=== PATIENT | female | born 1990 | race Caucasian/White ===

== ENCOUNTER 2017-09-10 17:05 | Emergency (ER) | payer OTHER ==
[~2017-09-10] VITALS: Ht 170.2 cm; Wt 54.4 kg
[~2017-09-10 17:05] MED LIST: ACETAMINOPHEN-1 EAC1 PO; ACETAMINOPHEN-120 ML PO; AFRIN15 ML NS; AMOXICILLIN875 MG PO; AUGMENTIN 500-1 EACH PO; AZITHROMYCIN 2250 MG PO; B COMPLEX1 EAC1 PO; BACKACHE EXTRA580 MG; BACTRIM DS TAB1 EACH PO; CIPRO250 M1 PO; CLONAZEPAM 0.50.5 M1; DARVOCET-N 1001 EACH PO; DIFLUCAN150 M1 PO; DOXYCYCLINE 10100 MG PO; ENDOCET 5-3251 EACH PO; FIORICET 50-301 EACH PO; FLAGYL500 MG PO; FLEXERIL PO; FLONASE 0.05%50 MCG NASAL; HYCET 7.5 MG-3473 ML PO; HYDROCODON-ACE1 EAC7 PO; HYDROCODONE-AP1 EAC6 PO; IBUPROFEN 600600 M1 PO; IMITREX 25 MG T25 MG PO; IMITREX6 MG/0.5 M SQ; KEFLEX500 MG PO; MAXALT5 MG PO; NAPROSYN500 MG PO; NOHOMEMEDICATIONS; NORCO 5-325 TA1 EACH PO; ONDANSETRON HCL4 M2 PO; PERCOCET 5-3251 EACH PO; PHENERGAN 25 MG25 M1 PO; PHENERGAN 25 MG25 MG PO; PREDNISONE 20 M20 M1 PO; PROAIR HFA8.5 GM IH; PROAIR HFA8.5 GM INH; PROVERA10 MG PO; PROZAC10 MG PO; PYRIDIUM200 MG PO; ROBITUSSIN DM118 ML PO; SAFYRAL TABLET1 EACH PO; SKELAXIN 800 M800 M1 PO; TESSALON PERLE100 MG PO; TOPAMAX25 M1 PO; TUCKS1 EAC1 TP; ULTRAM 50MG TAB50 MG PO; VALIUM5 MG; VENTOLIN HFA 1818 GM INH; VICODIN 5-5001 EACH PO; ZOFRAN ODT4 MG SUBLING; ZOFRAN4 MG PO; birth control
[2017-09-10] MEDS ORDERED: ADDERALL 20 MG20 M1 PO (17:15)
[2017-09-10] MEDS ORDERED: XANAX 0.5 MG0.5 MG PO (17:37)
[2017-09-10 17:51] LABS: URINE BILIRUBIN NEGATIVE (Negative); URINE BLOOD NEGATIVE (Negative); URINE CLARITY CLEAR; URINE COLOR YELLOW; URINE GLUCOSE-RANDOM NEGATIVE (Negative); URINE KETONES NEGATIVE (Negative); URINE LEUKOCYTES-REFLEX NEGATIVE (Negative); URINE NITRITE-REFLEX NEGATIVE (Negative); URINE PROTEIN NEGATIVE (Negative); URINE SPECIFIC GRAVITY 1.025 (1.005-1.030); URINE UROBILINOGEN 0.2 E.U./dl (0.2-1.0)
[2017-09-10 17:52] LABS: ABSOLUTE BASOPHILS 0.1 thou/uL (0.0-0.2); ABSOLUTE EOSINOPHILS 0.2 thou/uL (0.0-0.7); ABSOLUTE LYMPHOCYTES 2.2 thou/uL (0.8-5.3); ABSOLUTE MONOCYTES 0.8 thou/uL (0.0-1.2); ABSOLUTE NEUTROPHILS 4.8 thou/uL (1.6-8.1); BASOPHILS 1.1 %; EOSINOPHILS 2.7 %; HEMATOCRIT 42.4 % (37.0-47.0); HEMOGLOBIN 13.6 gm/dL (12.0-15.0); LYMPHOCYTES 26.9 %; MCH 26.6 pg (26.0-34.0); MCHC 32.2 g/dL (28.0-37.0); MCV 82.8 fL (80.0-100.0); MONOCYTES 10.2 %; MPV 8.2 fl. (7.2-11.1); NUCLEATED RBCS 0 /100WBC; PLATELET COUNT* 292 thou/uL (150-400); POLYS 59.1 %; RBC 5.11 mil/uL (4.20-5.00); RDW-CV 17.3 % (10.5-14.5)
[2017-09-10 18:01] LABS: CALCIUM 8.9 mg/dL (8.5-10.1); CREATININE 0.8 mg/dL (0.6-1.3); POTASSIUM 3.7 mmol/L (3.5-5.1)
[2017-09-10 18:05] LABS: TOTAL BILIRUBIN 0.3 mg/dL (<0.1-1.0); TOTAL PROTEIN 7.5 g/dL (6.4-8.2)
[2017-09-10 18:05] LABS: INFLUENZA A ANTIGEN None Detected (None Detect); INFLUENZA B ANTIGEN None Detected (None Detect)
[2017-09-10 20:47] VITALS: BP 114/48
--- NOTE | 2017-09-14 17:32 | EKG ---
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1990 Requested By: Gab Jose Order Number: [id number] MD: Melo Cooper Measurements Intervals [place] Rate: 131 P: 71 [place]: 127 QRS: 94 QRSD: 85 T: 21 QT: 285 QTc: 421 Interpretive Statements Sinus tachycardia Left atrial enlargement Compared to ECG 11/05/2015 17:21:35 Atrial abnormality now present Sinus rhythm no longer present Electronically Signed On 09-14-2017 17:32:01 [employer] by Melo Cooper [email or web address] <ELECTRONICALLY SIGNED> By: Melo Cooper MD, [facility] 09/14/17 1732 18 18 Melo Cooper MD, FACC /EPI
== END 2017-09-10 20:49 | disposition home or self-care (01) ==
LOC: M.ERS 17:05
PROVIDERS: Nurse Practitioner Family
DX: J11.1 Influenza due to unidentified influenza virus with other respiratory manifestations (principal); J45.909 Unspecified asthma, uncomplicated; F41.9 Anxiety disorder, unspecified; G43.909 Migraine, unspecified, not intractable, without status migrainosus; F17.210 Nicotine dependence, cigarettes, uncomplicated; F10.99 Alcohol use, unspecified with unspecified alcohol-induced disorder; Z90.710 Acquired absence of both cervix and uterus; Z98.890 Other specified postprocedural states; Z88.1 Allergy status to other antibiotic agents; Z88.6 Allergy status to analgesic agent; Z88.8 Allergy status to other drugs, medicaments and biological substances

== ENCOUNTER 2017-11-23 19:10 | Emergency (ER) | payer OTHER ==
[~2017-11-23] VITALS: Ht 170.2 cm; Wt 59.0 kg
[~2017-11-23 19:10] MED LIST changes: +ADDERALL 20 MG20 M1 PO; +XANAX 0.5 MG0.5 MG PO
[2017-11-23 19:41] LABS: URINE BILIRUBIN NEGATIVE (Negative); URINE BLOOD NEGATIVE (Negative); URINE CLARITY CLEAR; URINE COLOR YELLOW; URINE GLUCOSE-RANDOM NEGATIVE (Negative); URINE KETONES NEGATIVE (Negative); URINE LEUKOCYTES-REFLEX NEGATIVE (Negative); URINE NITRITE-REFLEX NEGATIVE (Negative); URINE PROTEIN NEGATIVE (Negative); URINE SPECIFIC GRAVITY >= 1.030 (1.005-1.030); URINE UROBILINOGEN 0.2 E.U./dl (0.2-1.0)
[2017-11-23 20:13] LABS: ABSOLUTE BASOPHILS 0.1 thou/uL (0.0-0.2); ABSOLUTE EOSINOPHILS 0.2 thou/uL (0.0-0.7); ABSOLUTE LYMPHOCYTES 2.4 thou/uL (0.8-5.3); ABSOLUTE NEUTROPHILS 6.9 thou/uL (1.6-8.1); BASOPHILS 0.9 %; EOSINOPHILS 2.3 %; HEMATOCRIT 37.2 % (37.0-47.0); HEMOGLOBIN 12.1 gm/dL (12.0-15.0); LYMPHOCYTES 22.8 %; MCH 27.6 pg (26.0-34.0); MCHC 32.6 g/dL (28.0-37.0); MCV 84.7 fL (80.0-100.0); MONOCYTES 9.2 %; MPV 7.9 fl. (7.2-11.1); NUCLEATED RBCS 0 /100WBC; PLATELET COUNT* 266 thou/uL (150-400); POLYS 64.8 %; RBC 4.39 mil/uL (4.20-5.00); RDW-CV 16.3 % (10.5-14.5); WBC 10.6 thou/uL (4.0-11.0)
[2017-11-23 20:20] LABS: CREATININE 0.8 mg/dL (0.6-1.3); POTASSIUM 3.7 mmol/L (3.5-5.1)
[2017-11-23 20:25] LABS: ALBUMIN 3.5 g/dL (3.4-5.0); TOTAL BILIRUBIN 0.2 mg/dL (<0.1-1.0); TOTAL PROTEIN 6.6 g/dL (6.4-8.2)
[2017-11-23 20:55] VITALS: BP 124/78
== END 2017-11-23 20:56 | disposition home or self-care (01) ==
LOC: M.ERS 19:10
PROVIDERS: Family Medicine
DX: O20.0 Threatened abortion (principal); E28.2 Polycystic ovarian syndrome; F41.9 Anxiety disorder, unspecified; J45.909 Unspecified asthma, uncomplicated; G43.909 Migraine, unspecified, not intractable, without status migrainosus; F17.210 Nicotine dependence, cigarettes, uncomplicated; Z90.710 Acquired absence of both cervix and uterus; Z3A.01 Less than 8 weeks gestation of pregnancy; Z88.8 Allergy status to other drugs, medicaments and biological substances; Z88.6 Allergy status to analgesic agent

== ENCOUNTER 2017-12-08 19:39 | Emergency (ER) | payer OTHER ==
[~2017-12-08] VITALS: Ht 170.2 cm; Wt 59.0 kg
[2017-12-08] MEDS ORDERED: VISTARIL 25 MG25 M1 (19:57)
[2017-12-08 20:24] LABS: URINE BILIRUBIN NEGATIVE (Negative); URINE BLOOD NEGATIVE (Negative); URINE CLARITY CLEAR; URINE COLOR YELLOW; URINE GLUCOSE-RANDOM NEGATIVE (Negative); URINE KETONES NEGATIVE (Negative); URINE LEUKOCYTES-REFLEX NEGATIVE (Negative); URINE NITRITE-REFLEX NEGATIVE (Negative); URINE PROTEIN NEGATIVE (Negative); URINE SPECIFIC GRAVITY 1.015 (1.005-1.030); URINE UROBILINOGEN 0.2 E.U./dl (0.2-1.0)
[2017-12-08 21:10] VITALS: BP 99/43
== END 2017-12-08 21:10 | disposition home or self-care (01) ==
LOC: M.ERS 19:39
PROVIDERS: Nurse Practitioner Family
DX: O99.511 Diseases of the respiratory system complicating pregnancy, first trimester (principal); J30.9 Allergic rhinitis, unspecified; R51 Headache; E28.2 Polycystic ovarian syndrome; F41.9 Anxiety disorder, unspecified; F17.210 Nicotine dependence, cigarettes, uncomplicated; Z88.8 Allergy status to other drugs, medicaments and biological substances; Z88.6 Allergy status to analgesic agent; Z3A.01 Less than 8 weeks gestation of pregnancy

== ENCOUNTER 2018-01-24 09:35 | Emergency (ER) | payer OTHER ==
[~2018-01-24] VITALS: Ht 170.2 cm; Wt 59.0 kg
[~2018-01-24 09:35] MED LIST changes: +VISTARIL 25 MG25 M1
[2018-01-24] MEDS ORDERED: LEXAPRO 10 MG T10 M2 PO (09:44)
[2018-01-24] MEDS ORDERED: PRENATAL PO (09:45)
[2018-01-24 15:20] VITALS: BP 127/70
[2018-01-25] MEDS ORDERED: BUTALB-APAP-CA1 EACH (21:15)
== END 2018-01-24 15:20 | disposition home or self-care (01) ==
LOC: M.ERS 09:35
DX: O26.891 Other specified pregnancy related conditions, first trimester (principal); G43.909 Migraine, unspecified, not intractable, without status migrainosus; E28.2 Polycystic ovarian syndrome; F41.9 Anxiety disorder, unspecified; J45.909 Unspecified asthma, uncomplicated; F17.210 Nicotine dependence, cigarettes, uncomplicated; Z88.8 Allergy status to other drugs, medicaments and biological substances; Z3A.12 12 weeks gestation of pregnancy; Z88.6 Allergy status to analgesic agent

== ENCOUNTER 2018-01-25 20:52 | Emergency (ER) | payer OTHER ==
[~2018-01-25] VITALS: Ht 170.2 cm; Wt 59.0 kg
[~2018-01-25 20:52] MED LIST changes: +LEXAPRO 10 MG T10 M2 PO; +PRENATAL PO
[2018-01-25] MEDS ORDERED: BUTALB-APAP-CA1 EACH (21:15)
[2018-01-25 21:45] LABS: ABSOLUTE EOSINOPHILS 0.2 thou/uL (0.0-0.7); ABSOLUTE LYMPHOCYTES 1.5 thou/uL (0.8-5.3); ABSOLUTE MONOCYTES 0.8 thou/uL (0.0-1.2); ABSOLUTE NEUTROPHILS 5.9 thou/uL (1.6-8.1); BASOPHILS 0.5 %; EOSINOPHILS 2.6 %; HEMOGLOBIN 10.6 gm/dL (12.0-15.0); LYMPHOCYTES 17.9 %; MCH 29.2 pg (26.0-34.0); MCHC 33.1 g/dL (28.0-37.0); MCV 88.1 fL (80.0-100.0); MONOCYTES 9.5 %; MPV 8.3 fl. (7.2-11.1); NUCLEATED RBCS 0 /100WBC; PLATELET COUNT* 208 thou/uL (150-400); POLYS 69.5 %; RBC 3.63 mil/uL (4.20-5.00); RDW-CV 16.5 % (10.5-14.5); WBC 8.5 thou/uL (4.0-11.0)
[2018-01-25 21:53] LABS: CALCIUM 9.2 mg/dL (8.5-10.1); CREATININE 0.6 mg/dL (0.6-1.3); POTASSIUM 3.6 mmol/L (3.5-5.1)
[2018-01-26 00:16] VITALS: BP 112/56
== END 2018-01-26 00:17 | disposition home or self-care (01) ==
LOC: M.ERS 20:52
PROVIDERS: Emergency Medicine
DX: O99.611 Diseases of the digestive system complicating pregnancy, first trimester (principal); K62.5 Hemorrhage of anus and rectum; E28.2 Polycystic ovarian syndrome; F41.9 Anxiety disorder, unspecified; J45.909 Unspecified asthma, uncomplicated; G43.909 Migraine, unspecified, not intractable, without status migrainosus; F17.210 Nicotine dependence, cigarettes, uncomplicated; Z3A.12 12 weeks gestation of pregnancy; Z88.8 Allergy status to other drugs, medicaments and biological substances; Z88.6 Allergy status to analgesic agent

== ENCOUNTER 2018-05-19 13:50 | Emergency (ER) | payer OTHER ==
[~2018-05-19] VITALS: Ht 170.2 cm; Wt 64.4 kg
[~2018-05-19 13:50] MED LIST changes: +BUTALB-APAP-CA1 EACH
[2018-05-19] MEDS ORDERED: BUSPIRONE HCL10 MG PO (14:03)
[2018-05-19] MEDS ORDERED: SERTRALINE HCL50 MG PO (14:04)
[2018-05-19] MEDS ORDERED: ZPAK PO (14:31)
[2018-05-19] MEDS ORDERED: TESSALON PERLE100 MG PO (14:31)
[2018-05-19 14:47] VITALS: BP 107/60
== END 2018-05-19 14:47 | disposition home or self-care (01) ==
LOC: M.ERS 13:50
DX: J40 Bronchitis, not specified as acute or chronic (principal); G43.909 Migraine, unspecified, not intractable, without status migrainosus; F41.9 Anxiety disorder, unspecified; F17.210 Nicotine dependence, cigarettes, uncomplicated; Z88.6 Allergy status to analgesic agent; Z88.8 Allergy status to other drugs, medicaments and biological substances

== ENCOUNTER 2018-08-23 10:11 | Emergency (ER) | payer OTHER, MEDICAID ==
[~2018-08-23] VITALS: Ht 170.2 cm; Wt 63.5 kg
[~2018-08-23 10:11] MED LIST changes: +BUSPIRONE HCL10 MG PO; +SERTRALINE HCL50 MG PO; +ZPAK PO
[2018-08-23] MEDS ORDERED: BUTALB-APAP-CA1 EACH PO (10:25)
[2018-08-23] MEDS ORDERED: BOTOX100 UNIT IM (10:26)
[2018-08-23] MEDS ORDERED: MAXALT MLT ODT10 M1 PO (10:27)
[2018-08-23] MEDS ORDERED: RITALIN20 MG PO (10:27)
[2018-08-23 10:36] LABS: URINE BILIRUBIN NEGATIVE (Negative); URINE BLOOD 2+ (Negative); URINE CLARITY CLEAR; URINE COLOR YELLOW; URINE GLUCOSE-RANDOM NEGATIVE (Negative); URINE KETONES NEGATIVE (Negative); URINE LEUKOCYTES-REFLEX NEGATIVE (Negative); URINE NITRITE-REFLEX NEGATIVE (Negative); URINE PROTEIN NEGATIVE (Negative); URINE UROBILINOGEN 0.2 E.U./dl (0.2-1.0)
[2018-08-23 10:46] LABS: BACTERIA-REFLEX 1-9 Few /HPF (None Seen); CASTS None Seen /LPF (None Seen); CRYSTALS None Seen /LPF (None Seen); MUCUS 0-3 Light strn/LPF (None Seen); SQUAMOUS 0-3 Few /LPF (0-3); URINE RBC None Seen /HPF (0-2); URINE WBC-REFLEX None Seen /HPF (0-5)
[2018-08-23 10:49] LABS: ABSOLUTE BASOPHILS 0.1 thou/uL (0.0-0.2); ABSOLUTE EOSINOPHILS 0.4 thou/uL (0.0-0.7); ABSOLUTE LYMPHOCYTES 2.3 thou/uL (0.8-5.3); ABSOLUTE MONOCYTES 0.7 thou/uL (0.0-1.2); ABSOLUTE NEUTROPHILS 2.9 thou/uL (1.6-8.1); BASOPHILS 0.9 %; EOSINOPHILS 5.7 %; HEMATOCRIT 38.7 % (37.0-47.0); HEMOGLOBIN 12.8 gm/dL (12.0-15.0); LYMPHOCYTES 36.3 %; MCHC 33.1 g/dL (28.0-37.0); MCV 93.5 fL (80.0-100.0); MONOCYTES 11.1 %; MPV 8.4 fl. (7.2-11.1); NUCLEATED RBCS 0 /100WBC; PLATELET COUNT* 249 thou/uL (150-400); RBC 4.14 mil/uL (4.20-5.00); RDW-CV 14.7 % (10.5-14.5); WBC 6.4 thou/uL (4.0-11.0)
[2018-08-23 10:55] LABS: CALCIUM 8.7 mg/dL (8.5-10.1); CREATININE 0.8 mg/dL (0.6-1.3); POTASSIUM 4.2 mmol/L (3.5-5.1)
[2018-08-23 11:00] LABS: ALBUMIN 3.6 g/dL (3.4-5.0); TOTAL BILIRUBIN 0.2 mg/dL (<0.1-1.0); TOTAL PROTEIN 6.5 g/dL (6.4-8.2)
[2018-08-23] MEDS ORDERED: HYDROCODONE-AP1 EAC6 PO (12:36)
[2018-08-23 12:45] VITALS: BP 102/60
== END 2018-08-23 12:48 | disposition home or self-care (01) ==
LOC: M.ERS 10:11
PROVIDERS: Nurse Practitioner Family
DX: N80.9 Endometriosis, unspecified (principal); F41.9 Anxiety disorder, unspecified; J45.909 Unspecified asthma, uncomplicated; G43.909 Migraine, unspecified, not intractable, without status migrainosus; F32.9 Major depressive disorder, single episode, unspecified; F17.210 Nicotine dependence, cigarettes, uncomplicated; Z88.8 Allergy status to other drugs, medicaments and biological substances; Z88.6 Allergy status to analgesic agent

== ENCOUNTER 2019-03-26 18:42 | Emergency (ER) | payer OTHER ==
[~2019-03-26] VITALS: Ht 170.2 cm; Wt 59.0 kg
[~2019-03-26 18:42] MED LIST changes: +BOTOX100 UNIT IM; +BUTALB-APAP-CA1 EACH PO; +MAXALT MLT ODT10 M1 PO; +RITALIN20 MG PO
[2019-03-26] MEDS ORDERED: CARBAMAZEPINE200 M5 PO (18:58)
[2019-03-26] MEDS ORDERED: ACETAMINOPHEN-1 EAC1 PO (20:48)
[2019-03-26 21:15] VITALS: BP 110/69
== END 2019-03-26 21:17 | disposition home or self-care (01) ==
LOC: M.ERS 18:42
DX: M25.562 Pain in left knee (principal); N80.9 Endometriosis, unspecified; F41.9 Anxiety disorder, unspecified; J45.909 Unspecified asthma, uncomplicated; G43.909 Migraine, unspecified, not intractable, without status migrainosus; F32.9 Major depressive disorder, single episode, unspecified; F17.210 Nicotine dependence, cigarettes, uncomplicated; Z90.710 Acquired absence of both cervix and uterus; Z88.8 Allergy status to other drugs, medicaments and biological substances

== ENCOUNTER 2019-06-20 09:31 | Emergency (ER) | payer OTHER ==
[~2019-06-20] VITALS: Ht 170.2 cm; Wt 61.2 kg
[~2019-06-20 09:31] MED LIST changes: +CARBAMAZEPINE200 M5 PO
[2019-06-20] MEDS ORDERED: VALIUM5 MG PO (09:46)
[2019-06-20 09:58] LABS: URINE BILIRUBIN NEGATIVE (Negative); URINE BLOOD 2+ (Negative); URINE CLARITY CLEAR; URINE COLOR YELLOW; URINE GLUCOSE-RANDOM NEGATIVE (Negative); URINE KETONES 1+ (Negative); URINE LEUKOCYTES-REFLEX NEGATIVE (Negative); URINE NITRITE-REFLEX NEGATIVE (Negative); URINE PROTEIN NEGATIVE (Negative); URINE SPECIFIC GRAVITY 1.015 (1.005-1.030); URINE UROBILINOGEN 0.2 E.U./dl (0.2-1.0)
[2019-06-20 10:12] LABS: ABSOLUTE BASOPHILS 0.1 thou/uL (0.0-0.2); ABSOLUTE EOSINOPHILS 0.1 thou/uL (0.0-0.7); ABSOLUTE LYMPHOCYTES 1.3 thou/uL (0.8-5.3); ABSOLUTE MONOCYTES 0.6 thou/uL (0.0-1.2); ABSOLUTE NEUTROPHILS 3.5 thou/uL (1.6-8.1); BASOPHILS 0.9 %; EOSINOPHILS 2.4 %; HEMATOCRIT 36.2 % (37.0-47.0); HEMOGLOBIN 11.9 gm/dL (12.0-15.0); LYMPHOCYTES 22.5 %; MCH 29.1 pg (26.0-34.0); MCHC 32.9 g/dL (28.0-37.0); MCV 88.4 fL (80.0-100.0); MONOCYTES 11.5 %; MPV 8.9 fl. (7.2-11.1); NUCLEATED RBCS 0 /100WBC; PLATELET COUNT* 245 thou/uL (150-400); POLYS 62.7 %; RBC 4.09 mil/uL (4.20-5.00); RDW-CV 14.9 % (10.5-14.5); WBC 5.6 thou/uL (4.0-11.0)
[2019-06-20 10:16] LABS: BACTERIA-REFLEX 1-9 Few /HPF (None Seen); CASTS None Seen /LPF (None Seen); CRYSTALS None Seen /LPF (None Seen); MUCUS None Seen strn/LPF (None Seen); SQUAMOUS 0-3 Few /LPF (0-3); URINE RBC 3-10 Few /HPF (0-2); URINE WBC-REFLEX 0-5 Rare /HPF (0-5)
[2019-06-20 10:28] LABS: CALCIUM 9.2 mg/dL (8.5-10.1); CREATININE 0.9 mg/dL (0.6-1.3)
[2019-06-20 10:33] LABS: TOTAL BILIRUBIN 0.2 mg/dL (<0.1-1.0); TOTAL PROTEIN 6.9 g/dL (6.4-8.2)
[2019-06-20 11:59] VITALS: BP 101/59
== END 2019-06-20 12:00 | disposition home or self-care (01) ==
LOC: M.ERS 09:31
PROVIDERS: Family Medicine
DX: R10.32 Left lower quadrant pain (principal); R11.2 Nausea with vomiting, unspecified; F41.9 Anxiety disorder, unspecified; G43.909 Migraine, unspecified, not intractable, without status migrainosus; F32.9 Major depressive disorder, single episode, unspecified; F17.210 Nicotine dependence, cigarettes, uncomplicated; Z88.6 Allergy status to analgesic agent; Z88.8 Allergy status to other drugs, medicaments and biological substances; N80.9 Endometriosis, unspecified

== ENCOUNTER 2019-07-31 19:06 | Inpatient (IN) | payer OTHER ==
[~2019-07-31] VITALS: Ht 170.2 cm; Wt 60.5 kg
[~2019-07-31 19:06] MED LIST changes: +VALIUM5 MG PO
[2019-07-31 19:09] VITALS: BP 138/81
[2019-07-31] MEDS ORDERED: BIRTH CONTROL (19:14)
[2019-07-31 20:08] LABS: URINE BILIRUBIN NEGATIVE (Negative); URINE BLOOD NEGATIVE (Negative); URINE CLARITY CLEAR; URINE COLOR YELLOW; URINE GLUCOSE-RANDOM NEGATIVE (Negative); URINE KETONES NEGATIVE (Negative); URINE LEUKOCYTES-REFLEX NEGATIVE (Negative); URINE NITRITE-REFLEX NEGATIVE (Negative); URINE PROTEIN NEGATIVE (Negative); URINE SPECIFIC GRAVITY 1.015 (1.005-1.030); URINE UROBILINOGEN 0.2 E.U./dl (0.2-1.0)
[2019-07-31 20:18] LABS: AMP/METHAMP Negative (Negative); BARBITURATES POSITIVE (Negative); BENZODIAZEPINES POSITIVE (Negative); COCAINE Negative (Negative); METHADONE Negative (Negative); OPIATES Negative (Negative); PCP Negative (Negative); THC Negative (Negative)
[2019-07-31 20:18] LABS: ABSOLUTE BASOPHILS 0.1 thou/uL (0.0-0.2); ABSOLUTE EOSINOPHILS 0.2 thou/uL (0.0-0.7); ABSOLUTE LYMPHOCYTES 1.9 thou/uL (0.8-5.3); ABSOLUTE MONOCYTES 0.7 thou/uL (0.0-1.2); ABSOLUTE NEUTROPHILS 3.2 thou/uL (1.6-8.1); BASOPHILS 0.9 %; EOSINOPHILS 3.6 %; HEMATOCRIT 35.6 % (37.0-47.0); HEMOGLOBIN 11.7 gm/dL (12.0-15.0); LYMPHOCYTES 30.8 %; MCH 28.6 pg (26.0-34.0); MCHC 32.7 g/dL (28.0-37.0); MCV 87.6 fL (80.0-100.0); MONOCYTES 11.9 %; NUCLEATED RBCS 0 /100WBC; PLATELET COUNT* 296 thou/uL (150-400); POLYS 52.8 %; RBC 4.07 mil/uL (4.20-5.00); RDW-CV 15.2 % (10.5-14.5); WBC 6.1 thou/uL (4.0-11.0)
[2019-07-31 20:22] LABS: ANION GAP 7 mmol/L (7-16); BUN 12 mg/dL (7-18); CALCIUM 8.8 mg/dL (8.5-10.1); CHLORIDE 105 mmol/L (98-107); CO2 29 mmol/L (21-32); CREATININE 0.7 mg/dL (0.6-1.3); GLUCOSE 78 mg/dL (70-99); POTASSIUM 4.1 mmol/L (3.5-5.1); SODIUM 141 mmol/L (136-145)
[2019-07-31 20:27] LABS: ALBUMIN 3.6 g/dL (3.4-5.0); ALKALINE PHOSPHATASE 71 U/L (46-116); SGOT 13 U/L (15-37); SGPT 23 U/L (30-65); TOTAL BILIRUBIN 0.1 mg/dL (<0.1-1.0); TOTAL PROTEIN 6.5 g/dL (6.4-8.2)
[2019-07-31 20:34] LABS: ACETAMINOPHEN < 2 ug/mL (10-30); SALICYLATE < 2.8 mg/dL (2.8-20.0)
[2019-07-31 20:35] LABS: ALCOHOL < 10 mg/dL (<10)
[2019-07-31 21:17] LABS: APTT 25.6 Seconds (25.0-31.3)
[2019-07-31 23:00] VITALS: BP 126/72
[2019-07-31 23:15] VITALS: BP 107/48
[2019-08-01 03:53] VITALS: BP 109/56
[2019-08-01 07:50] VITALS: BP 108/56
--- NOTE | 2019-08-01 08:11 | NUR ---
RECEIVED ER REPORT ON PATIENT FROM ALVAREZ MA. PATIENT CAME UP TO FLOOR AT 2315. PATIENT ORIENTED TO ROOM, BED, CALL LIGHT, AND HOSPITAL POLICY. ASSESSMENT COMPLETED CHARTED. HOURLY ROUNDING IN PLACE FOR PATIENT SAFETY. CLWR.
[2019-08-01 11:13] VITALS: BP 115/44
--- NOTE | 2019-08-01 12:38 | NUR ---
Pt is A&O. Resides at home. Independent. No DME. No hx of HH or SNF. Goal is home at ok. Following.
--- NOTE | 2019-08-01 14:15 | NUR ---
CALLED TELEPSYCH FACILTITY AND TESTED DEVICE. WILL CONTINUUE TO ASSESS.
[2019-08-01 16:48] VITALS: BP 114/59
[2019-08-01 20:00] VITALS: BP 119/52
[2019-08-02] VITALS: BP 100/59
[2019-08-02 04:00] VITALS: BP 108/47
[2019-08-02 08:30] VITALS: BP 110/64
--- NOTE | 2019-08-02 08:54 | NUR ---
ASSUMED PATIENT CARE AT 1900. ASSESSMENT COMPLETED CHARTED. PATIENT IS NSR ON THE MONITOR. HOURLY ROUNDING IN PLACE FOR PATIENT SAFETY. CLWR.
[2019-08-02] MEDS ORDERED: ATIVAN2 MG PO (10:42)
[2019-08-02] MEDS ORDERED: NORCO 5-325 TA1 EAC1 PO (10:44)
[2019-08-02 12:12] VITALS: BP 110/64
--- NOTE | 2019-08-02 16:53 | EKG ---
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
== END 2019-08-02 12:30 | disposition home or self-care (01) | DRG 57 ==
LOC: M.ERS 19:06 → M.TBA-ER 21:14 → M.2W 21:14
PROVIDERS: Personal Emergency Response Attendant; ADMIT Internal Medicine
DX: G25.89 Other specified extrapyramidal and movement disorders (principal); G25.3 Myoclonus; F43.10 Post-traumatic stress disorder, unspecified; I49.8 Other specified cardiac arrhythmias; F41.9 Anxiety disorder, unspecified; J45.909 Unspecified asthma, uncomplicated; G43.909 Migraine, unspecified, not intractable, without status migrainosus; F32.9 Major depressive disorder, single episode, unspecified; F17.210 Nicotine dependence, cigarettes, uncomplicated; M79.7 Fibromyalgia; T50.995A Adverse effect of other drugs, medicaments and biological substances, initial encounter; Z96.619 Presence of unspecified artificial shoulder joint; R29.2 Abnormal reflex; Z88.8 Allergy status to other drugs, medicaments and biological substances; Z82.49 Family history of ischemic heart disease and other diseases of the circulatory system; Z79.899 Other long term (current) drug therapy; Y92.89 Other specified places as the place of occurrence of the external cause

== ENCOUNTER 2021-08-16 18:22 | Emergency (ER) | payer OTHER ==
[~2021-08-16] VITALS: Ht 170.2 cm; Wt 66.7 kg
[~2021-08-16 18:22] MED LIST changes: +BIRTH CONTROL; +NORCO 5-325 TA1 EAC1 PO
[2021-08-16] MEDS ORDERED: ATIVAN2 MG PO (18:59)
[2021-08-16 19:32] LABS: INFLUENZA A ANTIGEN Negative (Negative); INFLUENZA B ANTIGEN Negative (Negative)
[2021-08-16 20:16] LABS: URINE BILIRUBIN NEGATIVE (Negative); URINE BLOOD NEGATIVE (Negative); URINE CLARITY CLEAR; URINE COLOR YELLOW; URINE GLUCOSE-RANDOM NEGATIVE (Negative); URINE KETONES NEGATIVE (Negative); URINE LEUKOCYTES NEGATIVE (Negative); URINE NITRITE NEGATIVE (Negative); URINE PROTEIN NEGATIVE (Negative); URINE SPECIFIC GRAVITY 1.025 (1.005-1.030); URINE UROBILINOGEN 0.2 E.U./dl (0.2-1.0)
[2021-08-17] MEDS ORDERED: PHENERGAN 25 MG25 M1 PO (01:25)
[2021-08-17 01:33] VITALS: BP 148/68
== END 2021-08-17 01:34 | disposition home or self-care (01) ==
LOC: M.ERS 18:22
PROVIDERS: Physician Assistant
DX: G43.909 Migraine, unspecified, not intractable, without status migrainosus (principal); Z20.822 Contact with and (suspected) exposure to COVID-19; M62.838 Other muscle spasm; R11.2 Nausea with vomiting, unspecified; M79.7 Fibromyalgia; F41.9 Anxiety disorder, unspecified; J45.909 Unspecified asthma, uncomplicated; F32.9 Major depressive disorder, single episode, unspecified; F17.210 Nicotine dependence, cigarettes, uncomplicated; Z79.899 Other long term (current) drug therapy; Z88.8 Allergy status to other drugs, medicaments and biological substances; Z88.6 Allergy status to analgesic agent